=== PATIENT | male | born 1995 | race Caucasian/White ===

== ENCOUNTER → 2017-07-22 | Outpatient (CLI) | payer BC ==
--- NOTE | 2017-07-22 08:46 | DIAGNOSTIC IMAGING REPORT ---
R KNEE 4 OR MORE CLINICAL HISTORY: 21 years-old Male presenting with RIGHT KNEE PAIN. TECHNIQUE: Frontal, sunrise, tunnel, and lateral views of the right knee were obtained. COMPARISON: None. FINDINGS: Knee joint congruent. No acute fracture or malalignment. No advanced degenerative change. No radiographic soft tissue abnormality. No large knee joint effusion. IMPRESSION: No acute osseous injury. Electronically signed by: Chirs Camara M.D. 07/22/2017 8:45 AM Dictated Date/Time: 07/22/2017 8:43 AM
== END | disposition home or self-care (01) ==
LOC: C.RDSM 08:11
PROVIDERS: ATTEND Family Medicine
DX: M25.561 Pain in right knee (principal)